=== PATIENT | male | born 1965 | race Caucasian/White ===

== ENCOUNTER 2019-07-28 09:43 | Emergency (ER) | payer BC ==
[2019-07-28 09:47] VITALS: RESP 18
[2019-07-28] MEDS ORDERED: HYDROcodone/APAP 5-325MG 1 EACH TAB PO STA (09:58)
--- NOTE | 2019-07-28 10:00 | ED ---
Upper Extremity HPI - General Chief Complaint: Extremity Injury, Upper Stated Complaint: Shoulder injury Time Seen by Provider: 07/28/19 09:49 Source: patient, RN notes reviewed Mode of arrival: ambulatory Limitations: no limitations - History of Present Illness Initial Comments: 53-year-old male presents emergency Department with chief complaint right shoulder injury. Patient states that she had an injury at a football pain in which another person which showed been doing many he may have fell or pulled on his arm. Patient denies any head injury no loss conscious. Patient states that he has intense pain with movement of the right shoulder. - Related Data Previous Rx's Medication Instructions Recorded Ibuprofen [Motrin] 600 mg PO Q8HR PRN #30 tab 07/28/19 Allergies Allergy/AdvReac Type Severity Reaction Status Date / Time Penicillins Allergy Unknown Verified 07/28/19 09:47 Review of Systems ROS Statement: Those systems with pertinent positive or pertinent negative responses have been documented in the HPI. ROS Other: All systems not noted in ROS Statement are negative. Past Medical History Past Medical History: Asthma History of Any Multi-Drug Resistant Organisms: None Reported Past Surgical History: No Surgical Hx Reported Past Psychological History: No Psychological Hx Reported Smoking Status: Never smoker Past Alcohol Use History: Occasional Past Drug Use History: None Reported General Exam Limitations: no limitations General appearance: alert, in no apparent distress Head exam: Present: atraumatic, normocephalic, normal inspection Neck exam: Present: normal inspection, full ROM. Absent: tenderness, meningismus, lymphadenopathy Respiratory exam: Present: normal lung sounds bilaterally. Absent: respiratory distress, wheezes, rales, rhonchi, stridor Cardiovascular Exam: Present: regular rate, normal rhythm, normal heart sounds. Absent: systolic murmur, diastolic murmur, rubs, gallop, clicks Extremities exam: Present: other (Limited range of motion right shoulder, neurovascular intact there is tenderness over the AC joint no obvious deformity, neurovascular intact engineer third assistant strength equal bilaterally no scapular tenderness) Course Vital Signs 07/28/19 09:45 Temperature 98.3 F Pulse Rate 85 Respiratory 18 Rate Blood Pressure 150/91 O2 Sat by Pulse 99 Oximetry Medical Decision Making - Medical Decision Making X-ray does not show evidence of dislocation, no acute fracture. Patient has tenderness over the Ac joint consistent with a mild separation. Patient placed a sling follow-up with orthopedics. Patient was started on anti-inflammatories return parameters were discussed. Disposition Clinical Impression: Separation of AC joint, Right shoulder strain Disposition: HOME SELF-CARE Condition: Stable Instructions (If sedation given, give patient instructions): Acromioclavicular Separation (ED) Additional Instructions: Please return to the Emergency Department if symptoms worsen or any other concerns. Prescriptions: Ibuprofen [Motrin] 600 mg PO Q8HR PRN #30 tab PRN Reason: Pain Is patient prescribed a controlled substance at d/c from ED?: No Referrals: None,Stated [Primary Care Provider] - 1-2 days Will Ortez DO [Doctor of Osteopathic Medicine] - 1-2 days Time of Disposition: 10:52
--- NOTE | 2019-07-28 10:25 | XR ---
EXAMINATION TYPE: XR shoulder complete RT DATE OF EXAM: 07/28/2019 CLINICAL HISTORY: pain TECHNIQUE: Three views of the right shoulder are obtained. COMPARISON: None FINDINGS: There is no acute fracture/dislocation evident. The acromioclavicular and glenohumeral dmitry int spaces appear within normal limits. The visualized ribs are intact and unremarkable. IMPRESSION: 1. There is no acute fracture or dislocation. ICD 10 NO FRACTURE, INITIAL EVALUATION
[2019-07-28] MEDS ORDERED: ACET/COD 300 MG/30 MG STARTER PACK 6 TAB BTL PO STA (10:51)
[2019-07-28 11:06] VITALS: BP 149/78; PULSE 78; TEMP 97.9
== END 2019-07-28 11:05 | disposition home or self-care (01) ==
LOC: EC 09:43
DX: S46.911A Strain of unspecified muscle, fascia and tendon at shoulder and upper arm level, right arm, initial encounter (principal); S43.101A Unspecified dislocation of right acromioclavicular joint, initial encounter; Z88.0 Allergy status to penicillin; W50.0XXA Accidental hit or strike by another person, initial encounter; Y93.61 Activity, american tackle football; Y92.009 Unspecified place in unspecified non-institutional (private) residence as the place of occurrence of the external cause
CPT/HCPCS: 99283

== ENCOUNTER 2021-04-18 20:07 | Emergency (ER) | payer BC ==
[2021-04-18 20:17] VITALS: RESP 18; TEMP 97.9
--- NOTE | 2021-04-18 21:40 | XR ---
EXAMINATION TYPE: XR chest 2V DATE OF EXAM: 04/18/2021 COMPARISON: NONE HISTORY: Chest pain and tightness TECHNIQUE: Frontal and lateral views of the chest are obtained. FINDINGS: There is no focal air space opacity, pleural effusion, or pneumothorax seen. The cardiac silhouette size is within normal limits. The osseous structures are intact. IMPRESSION: No acute cardiopulmonary process.
[2021-04-18] MEDS ORDERED: SODIUM CHLORIDE 0.9% 1,000 ML IV STA (22:20)
[2021-04-18] MEDS ORDERED: LORazepam 2 MG/ML INJ IV STA (22:20)
[2021-04-18] MEDS ORDERED: NITROGLYCERIN SL TABS 0.4 MG TAB SUBLINGUAL STA (22:20)
[2021-04-18] MEDS ORDERED: GLUCAGON 1 MG/ML VIAL IVP STA (22:20)
[2021-04-18] MEDS ORDERED: ONDANSETRON 4 MG/2 ML VIAL IVP STA (22:20)
--- NOTE | 2021-04-18 22:27 | ED ---
ENT HPI - General Chief complaint: Chest Pain Stated complaint: Chest Pain Time Seen by Provider: 04/18/21 21:23 Source: patient, family, RN notes reviewed, old records reviewed Mode of arrival: wheelchair Limitations: no limitations - History of Present Illness Initial comments: This is a 55-year-old male to the ER for evaluation patient presents today for evaluation regards to. Possible esophageal foreign body. Patient was eating some steak tonight and then had difficulties swallowing choking and chest pain. Patient multiple episodes of vomiting with no improvement in symptoms. Patient states his similar episode about 2 years ago, He was Able to cough up the chicken that he thought was stuck in his throat then. Patient still is unable to tolerate his oral secretions or eat or drink. He has tried drinking some water with no success MD complaint: foreign body (esophagus) Location: throat Severity: severe Severity scale (1-10): 8 Quality: aching Consistency: constant Improves with: none Worsens with: swallowing Context- Dental: other (none) Context- Ear: other (none) Associated Symptoms: sore throat - Related Data Home Medications Medication Instructions Recorded Confirmed No Known Home Medications 04/18/21 04/18/21 Allergies Allergy/AdvReac Type Severity Reaction Status Date / Time Penicillins Allergy Unknown Verified 04/18/21 22:58 Review of Systems ROS Statement: Those systems with pertinent positive or pertinent negative responses have been documented in the HPI. ROS Other: All systems not noted in ROS Statement are negative. Past Medical History Past Medical History: Asthma History of Any Multi-Drug Resistant Organisms: None Reported Past Surgical History: No Surgical Hx Reported Past Psychological History: No Psychological Hx Reported Smoking Status: Never smoker Past Alcohol Use History: Occasional Past Drug Use History: None Reported General Exam General appearance: alert, in no apparent distress, anxious Head exam: Present: atraumatic, normocephalic, normal inspection Eye exam: Present: normal appearance, PERRL, EOMI. Absent: scleral icterus, conjunctival injection, periorbital swelling ENT exam: Present: normal exam, mucous membranes moist Neck exam: Present: normal inspection. Absent: tenderness, meningismus, lymphadenopathy Respiratory exam: Present: normal lung sounds bilaterally. Absent: respiratory distress, wheezes, rales, rhonchi, stridor Cardiovascular Exam: Present: regular rate, normal rhythm, normal heart sounds. Absent: systolic murmur, diastolic murmur, rubs, gallop, clicks GI/Abdominal exam: Present: soft, normal bowel sounds. Absent: distended, tenderness, guarding, rebound, rigid Extremities exam: Present: normal inspection, full ROM, normal capillary refill. Absent: tenderness, pedal edema, joint swelling, calf tenderness Back exam: Present: normal inspection Neurological exam: Present: alert, oriented X3, CN II-XII intact Psychiatric exam: Present: normal affect, normal mood Skin exam: Present: warm, dry, intact, normal color. Absent: rash Course Vital Signs 04/18/21 20:13 Temperature 97.9 F Pulse Rate 72 Respiratory 18 Rate Blood Pressure 119/80 O2 Sat by Pulse 100 Oximetry Disposition Clinical Impression: Esophageal foreign body Narrative: Esophageal FB Resolved Disposition: HOME SELF-CARE Condition: Good Instructions (If sedation given, give patient instructions): Esophageal Foreign Body (ED) Is patient prescribed a controlled substance at d/c from ED?: No Referrals: Ana Cristina Soria MD [STAFF PHYSICIAN] - 1-2 days
[2021-04-19 01:22] VITALS: BP 122/81; PULSE 81
== END 2021-04-19 01:21 | disposition home or self-care (01) ==
LOC: EC 20:07
DX: T18.108A Unspecified foreign body in esophagus causing other injury, initial encounter (principal); J45.909 Unspecified asthma, uncomplicated; Z88.0 Allergy status to penicillin; W45.8XXA Other foreign body or object entering through skin, initial encounter
CPT/HCPCS: 93005; 71046; 99284; 96374; 96375; 96361; J2060; J1610; J2405